=== PATIENT | female | born 1940 | race Caucasian/White ===

== ENCOUNTER → 2017-06-19 | Outpatient (CLI) | payer OTHER, MEDICAID ==
[2016-07-11 08:25] VITALS: BP 129/67
--- NOTE | 2017-06-19 10:54 | RAD ---
HISTORY: Aspiration, shortness of breath Study: Single-view chest Comparison: 01/17/2017. Findings: A large bore right-sided internal jugular line is present having the appearance of a dialysis cathete r. The tip is at the cavoatrial junction. The trachea is midline. Heart size is upper normal with ath erosclerotic calcification and uncoiling of the aortic arch. Increased interstitial markings are agai n seen involving both lungs. Increased densities are present in both lower lobes, more so on the left . Findings may be on the basis of edema, infiltrate or aspiration. A left pleural effusion is suspec mackenzie. No acute osseous changes are seen. IMPRESSION: Increasing bibasilar lung densities which may represent edema, infiltrate or aspiration. A left pleur al effusion is suspected. Reported By:
== END ==
LOC: RAD 09:39
PROVIDERS: ATTEND Obstetrics & Gynecology Obstetrics
DX: R05 Cough (principal)
CPT/HCPCS: 71010

== ENCOUNTER 2017-10-10 01:49 | Inpatient (IN) | payer OTHER, MEDICAID ==
--- NOTE | 2017-10-10 02:07 | DR.GENAD ---
HPI - PCP Primary Care Physician: WEBB - Complaint/Symptoms Chief Complaint Doctors Comments: Patient states that she is doing great. Chief Complaint:: ELEVATED BLOOD PRESSURE 220/98 MANUAL, A LITTLE SHORT OF BREATH SPO2 94%, DIAPHORETIC SUDDEN ONSET PER TOCC. PATIENT DENIES PAIN , DENIES SHORTNESS OF BREATH. Self Treatment fo Chief Complaint: NC @ 2L PER TOCC - Source History Provided: Shelter - Mode of Arrival Mode of Arrival: Stretcher - Timing Onset of Chief Complaint: 10/10/17 PMH - PMH Past Medical History: Yes Past Medical History: Anemia, Anxiety, CVA, Depression, Diabetes, Dialysis, Dyslipidemia, GERD, Headaches, Hypertension, Renal Disease Past Surgical History: Yes Surgical History: , Tonsillectomy - Family History History of Family Medical Conditions: Yes Family Medical History: Diabetes Mellitus, Cancer, OR, Coronary Artery Disease - Social History Does patient currently use any type of tobacco product: No Have you used tobacco products in the last 12 months: No Type of Tobacco Use: None Does any household member use tobacco: No Alcohol Use: None Do you use any recreational Drugs:: No Lives With: Other Lives Where: Shelter - infectious screening Have you traveled outside the country in the last 6 months?: No Isolation: Standard ROS - Review of Systems Constitutional: No Symptoms Reported Eyes: No Symptoms Reported ENTM: No Symptoms Reported Respiratoy: See HPI, Short of Breath Cardiovascular: No Symptoms Reported Gastrointestinal/Abdominal: No Symptoms Reported Genitourinary: No Symptoms Reported Neurological: No Symptoms Reported, Pre-existing Deficit Musculoskeletal: No Symptoms Reported, Other (contracture of lower extremity) Integumentary: No Symptoms Reported Hematologic/Lymphatic: No Symptoms Reported Endocrine: No Symptoms Reported Psychiatric: No Symptoms Reported All Other Systems: Reviewed and Negative PE - Vital Signs Vitals: Temperature 98.0 F Pulse Rate [Left] 77 Pulse Rate 88 Respiratory Rate 20 Blood Pressure [Left Calf] 150/61 Blood Pressure [Right Calf] 110/52 Blood Pressure [Left Arm] 129/67 Blood Pressure [Right Arm] 130/42 Blood Pressure 136/91 O2 Sat by Pulse Oximetry 100 - General Limitations: No Limitations General Appearance: Alert, In No Apparent Distress - Head Head Exam: Normal Inspection, Atraumatic - Eyes Eye exam: Normal Appearance, PERRL, EOMI - ENT ENT Exam: Normal Exam, Mucous Membranes Moist External Ear Exam: Normal External Inspection TM/Canal Exam: Bilateral Normal Nose Exam: Normal Nose Exam Mouth Exam: Normal Inspection Throat Exam: Normal Inspection - Neck Neck Exam: Normal Inspection, Full ROM - Chest Chest Inspection: Normal Inspection, Symmetric Chest Wall Rise - Respiratory Respiratory Exam: Normal Lung Sounds Bilat Respiratory Exam: Bilateral Clear to Auscultation - Cardiovascular Cardiovascular Exam: Regular Rate, Normal Rhythm - Abdominal Exam Abdominal Exam: Normal Inspection, Normal Bowel Sounds, Soft Abdominal Tenderness: negative: RUQ, RLQ, LUQ, LLQ, Epigastrium, Suprapubic, Diffuse, Mild, Moderate, Severe, Other - Extremities Extremities Exam: Normal Inspection, Full ROM, Other (contracture of lower extremities) - Back Back Exam: Normal Inspection - Neurologic Neurological Exam: Alert, Oriented X3, CN II-XII Intact - Psychiatric Psychiatric Exam: Normal Affect, Normal Mood - Skin Skin Exam: Warm, Dry, Intact Course - Reevaluation 1st: Unchanged - Consultation Called: 04:10 (Dr Rosas agreed to admit for further treatment) ROR - Labs Reviewed Result Diagrams: 10/10/17 02:40 10/10/17 02:40 Laboratory: WBC 5.4 X10^3/uL (3.6-10.0) 10/10/17 02:40 RBC 3.93 X10^6/uL (3.5-5.4) 10/10/17 02:40 Hgb 11.7 g/dL (12.0-16.0) L 10/10/17 02:40 Hct 35.3 % (36.0-47.0) L 10/10/17 02:40 MCV 89.8 fL (80.0-100.0) 10/10/17 02:40 MCH 29.7 pg (27.0-34.0) 10/10/17 02:40 MCHC 33.1 g/dL (33.0-35.0) 10/10/17 02:40 RDW 17.3 % (11.6-16.5) H 10/10/17 02:40 Plt Count 168 X10^3/uL (150.0-450.0) 10/10/17 02:40 MPV 9.7 fL (7.4-11.0) 10/10/17 02:40 Neut % 73.8 % (42.0-75.0) 10/10/17 02:40 Lymph % 13.0 % (21.0-51.0) L 10/10/17 02:40 [place] % 6.7 % (0.0-13.0) 10/10/17 02:40 Eos % 2.6 % (0.9-2.9) 10/10/17 02:40 Baso % 3.9 % (0.2-1.0) H 10/10/17 02:40 Neut # 4.0 x10^3/uL (2.2-4.8) 10/10/17 02:40 Lymph # 0.7 X10^3/uL (1.3-2.9) L 10/10/17 02:40 [place] # 0.4 x10^3/uL (0.3-0.8) 10/10/17 02:40 Eos # 0.1 x10^3/uL (0.0-0.2) 10/10/17 02:40 Baso # 0.2 X10^3/uL (0.0-0.1) H 10/10/17 02:40 Absolute Nucleated RBC 0.1 /100WBC 10/10/17 02:40 Sodium 141 mmol/L (136-145) 10/10/17 02:40 Corrected Sodium 142 mmol/L (136-145) 10/10/17 02:40 Potassium 5.1 mmol/L (3.5-5.1) 10/10/17 02:40 Chloride 101 mmol/L (98-107) 10/10/17 02:40 Carbon Dioxide 30.5 mmol/L (21-32) 10/10/17 02:40 BUN 38 mg/dL (7-18) H 10/10/17 02:40 Creatinine 4.36 mg/dL (0.55-1.02) H 10/10/17 02:40 Est GFR (MDRD) Af Amer 13 (>60) L 10/10/17 02:40 Est GFR (MDRD) Non-Af 10 (>60) L 10/10/17 02:40 Glucose 129 mg/dL (65-99) H 10/10/17 02:40 Calcium 8.2 mg/dL (8.5-10.1) L 10/10/17 02:40 Corrected Calcium 8.8 mg/dL (8.5-10.1) 10/10/17 02:40 Total Bilirubin 0.40 mg/dL (0.2-1.0) 10/10/17 02:40 AST 20 Units/L (15-37) 10/10/17 02:40 ALT 18 Units/L (12-78) 10/10/17 02:40 Alkaline Phosphatase 99 Units/L (46-116) 10/10/17 02:40 Creatine Kinase 35 Units/L (26-192) 10/10/17 02:40 CK-MB (CK-2) 1.9 ng/mL (0-4.0) 10/10/17 02:40 CK/CKMB % Calc 5.4 % (<4) 10/10/17 02:40 Troponin I 0.04 ng/mL (0-1.5) 10/10/17 02:40 Total Protein 7.4 g/dL (6.4-8.2) 10/10/17 02:40 Albumin 3.3 g/dL (3.4-5.0) L 10/10/17 02:40 Globulin 4.1 g/dL (2.5-4.5) 10/10/17 02:40 Albumin/Globulin Ratio 0.8 Ratio (1.1-2.1) L 10/10/17 02:40 Specimen Type Catherized urine 10/10/17 02:20 Urine Color Yellow (YELLOW) 10/10/17 02:20 Urine Appearance Cloudy (CLEAR) 10/10/17 02:20 Urine pH 8.0 (5.0 - 8.0) 10/10/17 02:20 Ur Specific [place] 1.010 (1.000-1.030) 10/10/17 02:20 Urine Protein 3+ (NEGATIVE) 10/10/17 02:20 Urine Glucose (UA) Negative (NEGATIVE) 10/10/17 02:20 Urine Ketones Negative (NEGATIVE) 10/10/17 02:20 Urine Occult Blood 4+ (NEGATIVE) 10/10/17 02:20 Urine Nitrite Negative (NEGATIVE) 10/10/17 02:20 Urine Bilirubin Negative (NEGATIVE) 10/10/17 02:20 Urine Urobilinogen Normal (NORMAL) 10/10/17 02:20 Ur Leukocyte Esterase 3+ (NEGATIVE) 10/10/17 02:20 Urine RBC Tntc /HPF (NONE SEEN) 10/10/17 02:20 Urine WBC Tntc /HPF (NONE SEEN) 10/10/17 02:20 Ur Squamous Epith Cells Rare /HPF (NEGATIVE) 10/10/17 02:20 Urine Bacteria Trace /HPF (NEGATIVE) 10/10/17 02:20 Ur Culture Indicated? Yes/culture set up 10/10/17 02:20 - XRAY XRAY Interpreted by: Radiologist (Chest: The patient is slightly rotated. Additionally,the patient's chin obscures the right lung apex. Borderline cardiac silhouette enlargement is unchanged. There are central and basilar prodominant intersitital and airspace opacities with bilateral pleural effusions , right greater than left. There is stable right jugular dialysis catheter. Impression: Joaquín;ateral parenchymal opacities suggesting edema,infiltrate, and / or aspiration. Bilateral pleural effusions, right greater than left.) - Diagnosis Discharge Problem: Parenchymal opacities:edema,infiltrate, Bilateral pleural effusion UTI (urinary tract infection) Qualifiers: Urinary tract infection type: acute cystitis Hematuria presence: with hematuria Qualified Code(s): N30.01 - Acute cystitis with hematuria Renal failure Qualifiers: Renal failure chronicity: chronic Chronic kidney disease stage: unspecified stage Qualified Code(s): N18.9 - Chronic kidney disease, unspecified - Discharge Plan Condition: Stable - Follow ups/Referrals Follow ups/Referrals: JAMES WEBB [Primary Care Provider] - 3 days - Instructions
--- NOTE | 2017-10-10 02:33 | RAD ---
Chest, AP portable. Indication: Shortness of breath Comparison: 06/19/2017 Findings: The patient is slightly rotated. Additionally, the patient's chin obscures the right lung a pex. Borderline cardiac silhouette enlargement is unchanged. There are central and basilar predominan t interstitial and airspace opacities with bilateral pleural effusions, right greater than left. Ther e is stable right jugular dialysis catheter. Impression: Bilateral parenchymal opacities suggesting edema, infiltrate, and/or aspiration. Bilateral pleural ef fusions, right greater than left. Reported By:
[2017-10-10 02:57] LABS: BASOPHILS # (AUTO) 0.2 X10^3/uL (0.0-0.1); BASOPHILS % (AUTO) 3.9 % (0.2-1.0); EOSINOPHILS # (AUTO) 0.1 x10^3/uL (0.0-0.2); EOSINOPHILS % (AUTO) 2.6 % (0.9-2.9); HEMATOCRIT 35.3 % (36.0-47.0); HEMOGLOBIN 11.7 g/dL (12.0-16.0); LYMPHOCYTES # (AUTO) 0.7 X10^3/uL (1.3-2.9); MEAN CORPUSCULAR HEMOGLOBIN 29.7 pg (27.0-34.0); MEAN CORPUSCULAR HGB CONC 33.1 g/dL (33.0-35.0); MEAN CORPUSCULAR VOLUME 89.8 fL (80.0-100.0); MEAN PLATELET VOLUME 9.7 fL (7.4-11.0); MONOCYTES # (AUTO) 0.4 x10^3/uL (0.3-0.8); MONOCYTES % (AUTO) 6.7 % (0.0-13.0); NEUTROPHILS % (AUTO) 73.8 % (42.0-75.0); PLATELET COUNT 168 X10^3/uL (150.0-450.0); RED BLOOD COUNT 3.93 X10^6/uL (3.5-5.4); RED CELL DISTRIBUTION WIDTH 17.3 % (11.6-16.5); WHITE BLOOD COUNT 5.4 X10^3/uL (3.6-10.0)
[2017-10-10 03:11] LABS: CALCIUM 8.2 mg/dL (8.5-10.1); CARBON DIOXIDE 30.5 mmol/L (21-32); CREATININE 4.36 mg/dL (0.55-1.02); TROPONIN I 0.04 ng/mL (0-1.5)
[2017-10-10 03:11] LABS: BILIRUBIN,URINE NEGATIVE (NEGATIVE); BLOOD/HEMOGLOBIN,URINE 4+ (NEGATIVE); GLUCOSE, URINE NEGATIVE (NEGATIVE); KETONES,URINE NEGATIVE (NEGATIVE); LEUKOCYTE ESTERASE ,URINE 3+ (NEGATIVE); NITRITES,URINE NEGATIVE (NEGATIVE); PROTEIN,URINE 3+ (NEGATIVE); UROBILINOGEN,URINE NORMAL (NORMAL)
[2017-10-10 03:15] LABS: ALBUMIN 3.3 g/dL (3.4-5.0); CKMB % 5.4 % (<4); COR CA(FOR HYPOALB) 8.8 mg/dL (8.5-10.1); CREATINE KINASE MB 1.9 ng/mL (0-4.0); TOTAL PROTEIN 7.4 g/dL (6.4-8.2)
[2017-10-10 03:30] LABS: APPEARANCE,URINE CLOUDY (CLEAR); BACTERIA,URINE TRACE /HPF (NEGATIVE); COLOR,URINE YELLOW (YELLOW); RBC,URINE TNTC /HPF (NONE SEEN); SQUAMOUS EPITHELIAL CELL,UR RARE /HPF (NEGATIVE)
[2017-10-10] MEDS ORDERED: NS 1/2 1000 ML IV 1,000 ML IV ONE (04:42)
[2017-10-10] MEDS ORDERED: ROCEPHIN VIAL 1 GM ONE (04:43)
[2017-10-10] MEDS ORDERED: NS 100 ML IV + SPIKE MINIBAG* 100 ML IV ONE (04:43)
[2017-10-10] MEDS: ROCEPHIN 1 GM IV PREMIX 1 GM/50 ML IV.SOLN. IV SCH ×2 (04:52→07:59)
[2017-10-10] MEDS ORDERED: NS 1/2 1000 ML IV 1,000 ML IV SCH (05:00)
[2017-10-10] MEDS ORDERED: NORCO 5/325 MG TAB PO PRN (05:26)
[2017-10-10] MEDS: DUONEB 0.5 MG/3 MG NEB SCH ×4 (06:00→16:30)
[2017-10-10] MEDS ORDERED: NEPHRO-VITE RX PO SCH (09:00)
[2017-10-10] MEDS ORDERED: SENSIPAR PO SCH (09:00)
[2017-10-10] MEDS ORDERED: ULTRAM PO SCH (09:00)
[2017-10-10] MEDS ORDERED: COLACE CAP 100 MG PO SCH (09:00)
[2017-10-10] MEDS ORDERED: VIBRAMYCIN 100 MG in NS 100 ML IV + SPIKE MINIBAG* 100 ML IV SCH (09:00)
[2017-10-10] MEDS ORDERED: FUROSEMIDE 80 MG PO SCH (09:00)
[2017-10-10] MEDS ORDERED: LASIX PO SCH (09:00)
[2017-10-10] MEDS ORDERED: FOLIC ACID TAB 1 MG PO SCH (09:00)
[2017-10-10] MEDS ORDERED: ESTRADIOL VG SCH (09:00)
[2017-10-10] MEDS ORDERED: ZESTRIL TAB 5 MG PO SCH (09:00)
[2017-10-10] MEDS ORDERED: PATIENT'S HOME MEDICATION (Folic Acid [Folic Acid] 1 MG) PO SCH (09:00)
[2017-10-10] MEDS ORDERED: PEPCID TAB 20 MG PO SCH (09:00)
[2017-10-10] MEDS ORDERED: PLAVIX PO SCH (09:00)
[2017-10-10] MEDS: ROBITUSSIN DM PO SCH ×3 (09:43→16:26)
[2017-10-10] MEDS: PHOSLO CAP 667 MG PO SCH ×3 (10:52→16:25)
[2017-10-10 13:24] VITALS: BMI 19.0
[2017-10-10 16:15] VITALS: BP 138/60
[2017-10-10] MEDS ORDERED: VIBRAMYCIN PO SCH (18:00)
== END 2017-10-10 18:00 | DRG 189 ==
LOC: ER 01:49 → MED/SURG 04:32
PROVIDERS: ADMIT Internal Medicine; ATTEND Obstetrics & Gynecology Obstetrics
DX: J81.0 Acute pulmonary edema (principal); J90 Pleural effusion, not elsewhere classified; N30.01 Acute cystitis with hematuria; R06.02 Shortness of breath; E78.2 Mixed hyperlipidemia; K21.9 Gastro-esophageal reflux disease without esophagitis; R51 Headache; I10 Essential (primary) hypertension; F41.8 Other specified anxiety disorders
CPT/HCPCS: 36415; 51702; 71045; 80053; 81001; 82550; 82553; 84484; 85025; 87040; 87070; 87086; 87205; 94640; 94760; 96365; 96374; 99284; A4222; J0696; J3490; J7620